=== PATIENT | male | born 1945 | race Caucasian/White ===

== ENCOUNTER 2021-03-18 12:37 | Observation (INO) | payer MEDICARE, OTHER ==
[2021-03-18] VITALS (11 sets, daily range): BP systolic 110–148; BP diastolic 50–116
[~2021-03-18] VITALS: Ht 175.3 cm; Wt 99.8 kg
[2021-03-18] MEDS ORDERED: LIPITOR40 MG PO (12:53)
[2021-03-18] MEDS ORDERED: VAZALORE81 MG PO (12:53)
[2021-03-18] MEDS ORDERED: FISH OIL 1,001000 M3 PO (12:54)
[2021-03-18] MEDS ORDERED: LEVO-T100 MCG PO (12:54)
[2021-03-18] MEDS ORDERED: ZETIA10 MG PO (12:54)
[2021-03-18] MEDS ORDERED: CENTRUM ADULT120 MCG PO (12:54)
[2021-03-18] MEDS ORDERED: ARICEPT10 M1 PO (12:54)
[2021-03-18] MEDS ORDERED: METFORMIN HCL500 M3 PO (12:55)
[2021-03-18] MEDS ORDERED: NAMENDA 5 MG TAB5 M1 PO (12:55)
[2021-03-18] MEDS ORDERED: RISPERIDONE 00.25 MG PO (12:55)
[2021-03-18] MEDS ORDERED: VENLAFAXINE HC150 M1 PO (12:56)
[2021-03-18 13:05] LABS: ABSOLUTE BASOPHILS 0.2 thou/uL (0.0-0.2); ABSOLUTE EOSINOPHILS 0.3 thou/uL (0.0-0.7); ABSOLUTE LYMPHOCYTES 2.2 thou/uL (0.8-5.3); ABSOLUTE MONOCYTES 0.7 thou/uL (0.0-1.2); ABSOLUTE NEUTROPHILS 4.9 thou/uL (1.6-8.1); BASOPHILS 2.3 %; EOSINOPHILS 4.1 %; HEMATOCRIT 42.8 % (42.0-52.0); HEMOGLOBIN 14.3 gm/dL (14.0-18.0); MCH 29.7 pg (26.0-34.0); MCHC 33.4 g/dL (28.0-37.0); MCV 89.1 fL (80.0-100.0); MONOCYTES 8.1 %; MPV 9.8 fl. (7.2-11.1); NUCLEATED RBCS 0 /100WBC; PLATELET COUNT* 219 thou/uL (150-400); POLYS 58.5 %; RDW-CV 12.7 % (10.5-14.5); WBC 8.3 thou/uL (4.0-11.0)
[2021-03-18 13:15] LABS: CALCIUM 9.3 mg/dL (8.5-10.1); CREATININE 1.1 mg/dL (0.6-1.3); POTASSIUM 3.9 mmol/L (3.5-5.1)
--- NOTE | 2021-03-18 13:16 | EKG ---
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1945 Requested By: Ray Glover Order Number: [id number] MD: Edgard Norton Measurements Intervals [place] Rate: 42 P: 17 [place]: 337 QRS: -12 QRSD: 142 T: 75 QT: 553 QTc: 463 Interpretive Statements Sinus bradycardia Prolonged [place] interval IVCD, consider atypical RBBB Inferior infarct, old Delayed R wave progression Low voltage precordial leads no previous ECG available for comparison Electronically Signed On 03-18-2021 13:16:34 STUD SETTER by Edgard Norton [email or web address] <ELECTRONICALLY SIGNED> By: Edgard Norton MD, FACC 03/18/21 1316 1243 1243 Edgard Norton MD, [facility] /EPI
[2021-03-18 13:19] LABS: TOTAL BILIRUBIN 0.6 mg/dL (<0.1-1.0); TOTAL PROTEIN 7.6 g/dL (6.4-8.2)
--- NOTE | 2021-03-18 17:56 | CARD ---
[address] [address] CARDIAC CATH REPORT Name: NAY ZUNIAG Room: [address] M.R.#: [id number] Admission: 03/18/21 Attend Phys: Andi Kendall Discharge: Date of : 47 Report #: [id number] THIS REPORT FOR: cc: Lauren Bettencourt MD, Sarah Beth MD [place], Michael J. MD [facility] ~ APPROVED REPORT Study performed: 03/18/2021 15:36:52 Patient Status: ED Room #: Event Personnel: Declan Zuniga RTR, Faith RN, Yari Coleman RTR Exam: Insertion of Dual Chamber Permanent Pacemaker Conscious Sedation Start time: 1653 End Time: 1722 Fentanyl 25.0 mcg Versed 1.0 mg Implanted Devices: Device: Edora 8 [place] Ref# [id number], Ser# [id number] V-Lead: Solia S 60 Ser# [id number], A-Lead: Solia S 53 Ser# [id number] Procedure The patient underwent informed consent. We discussed the details of the procedure including the risks, which include, but not limited to bleeding, infection, vascular damage, cardiac perforation, and pneumothorax. He understood these risks and was willing to proceed. As such, he was brought to the EP/Cardiac Catheterization laboratory in a fasting and sedated state and prepped and draped in a sterile fashion, received IV antibiotics prior to initiation of the procedure and a venogram was performed showing patency of the left axillary vein. The patient underwent conscious sedation, with no related complications. The patient was brought to the EP/Cardiac Catheterization laboratory and the left chest and shoulder were prepped and draped in a sterile manner. During this case, Fluoroscopy and visipaque 20cc were used for imaging. IV conscious sedation was used throughout procedure with appropriate monitoring and was performed in the presence of a registered nurse who was an independent trained observer other than the [place] [address] CARDIAC CATH REPORT Name: NAY ZUNIGA Room: [address]#: [id number] Admission: 03/18/21 Attend Phys: Andi Kendall Discharge: Date of : 47 Report #: [id number] The left subclavian region was infiltrated with 2% Lidocaine subcutaneous anesthesia. A transverse incision was made in the left upper chest cavity. The subcutaneous pocket was formed via blunt dissection. Percutaneous venous access was achieved and an introducer sheath was inserted into the left Subclavian vein. Sheaths were positions using the modified Seldinger technique Through the introducer sheaths the atrial and ventricular lead wires were positioned in the right atrial appendage and right ventricular apex respectively. Utilizing fluoroscopic guidance, the atrial and ventricular lead wires were advanced over the wires and positioned in the right atria and right ventricle respectively. Capturing and sensing thresholds were verified. The ventricular lead was interrogated and Electrode Parameters P Wave: 1.4 mV R Wave: 9.8 mV Atrial Threshold: 2.0 V at 0.40 ms Ventricular Threshold: 0.5 V at 0.40 ms Atrial Resistance: 541 ohms Ventricular Resistance: 943 ohms Dual Chamber The atrial and ventricular leads were then secured using 0 silk sutures. The subcutaneous pocket was irrigated with ancef antibiotic solution.The atrial and ventricular leads were attached to the appropriate receptacles on the pulse generator and set screws firmly tightened to insure adequate contact and stability. The lead and pulse generator were placed into the subcutaneous pocket. Sharp and sponge counts were confirmed to be correct. At this time the pocket was closed subcutaneously with a 2.0 Vicryl and the skin was closed with a 4.0 Vicryl. The operative site was dressed in sterile fashion with steri strips and the patient was transferred to the floor in stable condition. Complications The patient tolerated the procedure well and there were no complications associated with the procedure. Conclusion 1. Sinus node dysfunction with symptomatic bradycardia and syncope. 2. Successful placement of a dual-chamber pacemaker [place] [address] CARDIAC CATH REPORT Name: NAY ZUNIGA [address] [id number] Admission: 03/18/21 Attend Phys: Andi Kendall Discharge: Date of : 47 Report #: [id number] ventricular lead placement. Recommendations 1. Follow-up site check in 1 week. 2. Follow-up device interrogation in 1 month. <ELECTRONICALLY SIGNED> By: Edgard Norton MD, FACC 03/18/211755 55 55Michaemodesta Norton MD, FACC /INF
[2021-03-18] MEDS ORDERED: MIRALAX119 GM PO (20:11)
[2021-03-19] VITALS: BP 123/69
[2021-03-19 04:00] VITALS: BP 116/47
[2021-03-19 08:16] VITALS: BP 135/63
--- NOTE | 2021-03-19 11:23 | EKG ---
[place] [address] ELECTROCARDIOGRAM REPORT Name: NAY ZUNIGA Room: [address] M.R.#: [id number] Admission: 03/18/21 Attend Phys: Ishan Garcia Discharge: Date of : 47 Date of Service: 03/19/21 0401 Report #: [id number] THIS REPORT FOR: //name// [facility] Test Date: 2021-03-19 Test Time: 04:01:34 Pat Name: NAY ZUNIGA Department: Room: [facility] Gender: M Raw[place] Bone Roller: MADDY : 1945 Requested By: Edgard Norton Order Number: [id number] Stanislaw MD: Srinath Falcon Measurements Intervals [place] Rate: 66 P: [place]: 191 QRS: -78 QRSD: 187 T: 93 QT: 527 QTc: 553 Interpretive Statements Atrial-ventricular dual-paced complexes with PVC No further analysis attempted due to paced rhythm Compared to ECG 03/18/2021 12:43:58 paced rhythm now noted Electronically Signed On 03-19-2021 11:23:05 FELT HOOKER by Srinath Falcon [email or web address] <ELECTRONICALLY SIGNED> By: Srinath Falcon MD, [facility] 03/19/21 1123 0 040 Srinath Falcon MD, [facility] /EPI
--- NOTE | 2021-03-19 11:24 | EKG ---
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 : 1945 Requested By: Edgard Norton Order Number: [id number] Stanislaw MD: Srinath Falcon Measurements Intervals [place] Rate: 60 P: 2 [place]: 189 QRS: -81 QRSD: 189 T: 95 QT: 518 QTc: 518 Interpretive Statements WITHOUT MAGNET Atrial-ventricular dual-paced rhythm No further analysis attempted due to paced rhythm Compared to ECG 03/19/2021 04:01:34 No significant changes Electronically Signed On 03-19-2021 11:24:46 LOADER DEMOLDER by Srinath Falcon [email or web address] <ELECTRONICALLY SIGNED> By: Srinath Falcon MD, FACC 03/19/21 1124 5 5 Srinath Falcon MD, FACC /EPI
[2021-03-19 12:00] VITALS: BP 137/71
--- NOTE | 2021-03-19 16:15 | EKG ---
[place] [address] ELECTROCARDIOGRAM REPORT Name: NAY ZUNIGA Room: [address] M.R.#: [id number] Admission: 03/18/21 Attend Phys: Ishan Garcia Discharge: 03/19/21 Date of : 47 Date of Service: 03/19/21 1251 Report #: [id number] THIS REPORT FOR: //name// [facility] Test Date: 2021-03-19 Test Time: 12:51:19 Pat Name: NAY ZUNIGA Department: Room: [address] Gender: M Sap Administrator: ALINE : 1945 Requested By: Edgard Norton Order Number: [id number] Reading MD: Srinath Falcon Measurements Intervals [place] Rate: 82 P: [place]: 192 QRS: -77 QRSD: 185 T: 88 QT: 475 QTc: 555 Interpretive Statements WITH MAGNET Atrial-ventricular dual-paced complexes No further analysis attempted due to paced rhythm Compared to ECG 03/19/2021 08:06:27 No significant changes Electronically Signed On 03-19-2021 16:15:47 CLOAK ROOM ATTENDANT by Srinath Falcon [email or web address] <ELECTRONICALLY SIGNED> By: Srinath Falcon MD, FACC 03/19/21 1615 1251 1251 Srinath Falcon MD, FACC /EPI
--- NOTE | 2021-03-20 10:18 | H ---
[place] [address] HISTORY AND PHYSICAL Name: NAY ZUNIGA Room: [address] Byron Amaro#: [id number] Admission: 03/18/21 Attend Phys: Andi Kendall Discharge: 03/19/21 Date of : 47 Report #: [id number] THIS REPORT FOR: cc: Lauren Bettencourt MD, Sarah Beth MD [place]on, Michael J. MD [facility] ~ DATE OF SERVICE: 03/18/2021 CARDIOLOGY ADMISSION HISTORY AND PHYSICAL INDICATION: Bradycardia and near syncope. HISTORY OF PRESENT ILLNESS: The patient is a 75-year-old gentleman with a history of coronary artery disease with coronary artery bypass grafting several years ago. The patient has had a history of some form of heart block in the past. He is on no rate controlling medications at present. The patient was noted to be profoundly bradycardic at his residence this morning and transferred to the emergency room for further evaluation. The patient has moderate dementia. His daughter is present with him. He not having chest pain or shortness of breath. The daughter and the patient both ____ episodes of blacking out, especially after standing up. He is currently in the process of having a 2-week monitor. He reports his most recent episode of syncope is yesterday. In his assisted care facility, the staff reported heart rates in the 30s. Here in the Emergency Room, his heart rate is 41. He is hemodynamically stable otherwise. PAST MEDICAL HISTORY: 1. Coronary artery disease. 2. History of coronary artery bypass grafting. 3. Hyperlipidemia. 4. Hypothyroidism. 5. Alzheimer dementia. 6. Chronic bradycardia. ALLERGIES: CODEINE. CURRENT MEDICATIONS: Aspirin 81 mg daily, atorvastatin 40 mg daily, Zetia 10 mg daily, fish oil 1000 mg daily, levothyroxine 1 tablet daily, metformin 500 mg daily, Namenda 5 mg daily, risperidone 0.25 mg daily, Effexor 150 mg daily, Aricept 10 mg daily, multivitamin 1 tablet daily. SOCIAL HISTORY: The patient resides in assisted care. He does not drink or smoke. FAMILY HISTORY: [place] [address] HISTORY AND PHYSICAL Name: NAY ZUNIGA Room: [address]#: [id number] Admission: 03/18/21 Attend Phys: Andi Kendall Discharge: 03/19/21 Date of : 47 Report #: [id number] REVIEW OF SYSTEMS: A 14-point review of systems positive for occasional lightheadedness, dizziness and syncope. He reports joint pain. Otherwise, 14-point review of systems was unremarkable. PHYSICAL EXAMINATION: VITAL SIGNS: Stable. Blood pressure was 128/86, pulse is 42. GENERAL: This is a pleasant elderly gentleman who is in no distress. Mood and affect appropriate. HEENT: Head is normocephalic, atraumatic. Extraocular muscles intact. Mucous membranes are moist. NECK: Examination of the neck shows no jugular venous distention. CHEST: Reveals clear lung wilder. CARDIAC: Reveals a regular rhythm. I do not appreciate gallop or murmur. His rate is slow. ABDOMEN: Reveals normal bowel sounds. The abdomen is soft and nontender. EXTREMITIES: Shows no edema. Peripheral pulses 2+ and palpable. SKIN: Warm and dry. DIAGNOSTIC DATA: A 12-lead EKG shows sinus bradycardia with first degree AV block. LABORATORY DATA: Reviewed. CBC is within normal limits. Electrolytes are within normal limits. BUN 10, creatinine 1.1, EGFR 65. Serum glucose 118. Coags are within normal limits. Chest x-ray shows no acute cardiopulmonary disease. There is evidence of prior bypass. IMPRESSION AND RECOMMENDATIONS: 1. Bradycardia with symptoms of syncope. At this time, I believe the patient would benefit from dual chamber pacemaker placement. He is on no rate controlling medications at this time. 2. Coronary artery disease, presently stable. He is not having any symptoms to suggest angina. He is on daily aspirin. 3. Dyslipidemia. The patient is on a statin agent. Recommend goal LDL of 70 or less. <ELECTRONICALLY SIGNED> By: Edgard Norton MD, FACC 03/20/21 1018 1440 1515Micjean claude Norton MD, FACC /nt
== END 2021-03-19 13:50 ==
LOC: M.ERS 12:37 → M.2W 15:23 → M.TBA-ER 15:23 → M.2W 17:39
PROVIDERS: Emergency Medicine Emergency Medical Services; ADMIT Internal Medicine; ATTEND Internal Medicine
DX: I25.10 Atherosclerotic heart disease of native coronary artery without angina pectoris (principal); Z20.822 Contact with and (suspected) exposure to COVID-19; I45.9 Conduction disorder, unspecified; I10 Essential (primary) hypertension; E11.9 Type 2 diabetes mellitus without complications; E78.5 Hyperlipidemia, unspecified; E03.9 Hypothyroidism, unspecified; G47.30 Sleep apnea, unspecified; G30.9 Alzheimer's disease, unspecified; F02.80 Dementia in other diseases classified elsewhere, unspecified severity, without behavioral disturbance, psychotic disturbance, mood disturbance, and anxiety; R53.1 Weakness; C61 Malignant neoplasm of prostate; Z95.1 Presence of aortocoronary bypass graft; Z87.891 Personal history of nicotine dependence; Z79.82 Long term (current) use of aspirin; Z79.84 Long term (current) use of oral hypoglycemic drugs; Z79.899 Other long term (current) drug therapy